=== PATIENT | female | born 2000 | race Caucasian/White ===

== ENCOUNTER 2021-01-11 13:37 | Emergency (ER) | payer BC, OTHER ==
[~2021-01-11] VITALS: Ht 177.8 cm; Wt 70.4 kg
[2021-01-11 14:12] LABS: HEMATOCRIT 40 % (35-52); HEMOGLOBIN 13.5 g/dL (11.5-16.0); MEAN CORPUSCULAR HEMOGLOBIN 28 pg (25-34); MEAN CORPUSCULAR HGB CONC 34 g/dL (32-36); MEAN CORPUSCULAR VOLUME 85 fL (80-99); MEAN PLATELET VOLUME 10.6 fL (9.0-12.2); PLATELET COUNT 230 10^3/uL (130-400)
[2021-01-11 14:13] LABS: BASOPHILS # (AUTO) 0.1 10^3/uL (0.0-0.1); BASOPHILS % (AUTO) 1 % (0-10); EOSINOPHILS # (AUTO) 0.1 10^3/uL (0.0-0.3); EOSINOPHILS % (AUTO) 1 % (0-10); LYMPHOCYTES % (AUTO) 23 % (12-44); MONOCYTES # (AUTO) 0.6 X 10^3 (0.0-1.0); MONOCYTES % (AUTO) 7 % (0-12); NEUTROPHILS # (AUTO) 5.8 X 10^3 (1.8-7.8); NEUTROPHILS % (AUTO) 68 % (42-75)
[2021-01-11 14:14] LABS: WHITE BLOOD COUNT 8.5 10^3/uL (4.3-11.0)
--- NOTE | 2021-01-11 14:14 | Diagnostic Imaging Report ---
INDICATION: Centralized chest pain. TIME OF EXAM: 02:04 p.m. COMPARISON: No prior studies are available for comparison. The heart size is normal. The pulmonary vascularity is unremarkable. The lungs are clear. No infiltrate, effusion or pneumothorax is detected. IMPRESSION: No acute cardiopulmonary process is detected. Dictated by: Dictated on workstation # [id number]
[2021-01-11 14:24] LABS: BUN/CREATININE RATIO 21; CALCIUM 9.6 MG/DL (8.5-10.1); CARBON DIOXIDE 24 MMOL/L (21-32); CHLORIDE 104 MMOL/L (98-107); CREATININE SERUM 0.85 MG/DL (0.60-1.30); GFR ESTIMATED 86; GLUCOSE 101 MG/DL (70-105); POTASSIUM 3.6 MMOL/L (3.6-5.0); SODIUM 140 MMOL/L (135-145)
[2021-01-11 14:25] LABS: ALANINE AMINOTRANSFERASE 13 U/L (0-55); ALBUMIN 4.7 GM/DL (3.2-4.5); ALKALINE PHOSPHATASE 53 U/L (40-136); BILIRUBIN,TOTAL 0.4 MG/DL (0.1-1.0); TOTAL PROTEIN 7.4 GM/DL (6.4-8.2)
--- NOTE | 2021-01-11 16:04 | ED Chest Pain ---
General Chief Complaint: Chest Pain Stated Complaint: CHEST PAIN Nursing Triage Note: Patient presents to the ED with c/o chest pain. She reports that she has a hx of a high heart rate and has seen a limnology teacher in the past. She reports over the last several days her heart rate has been in the 150s to 170s and today she started having left sided chest pain. She describes the pain as a deep ache. Source: patient History of Present Illness Date Seen by Provider: Jan 11, 2021 Time Seen by Provider: 14:00 Initial Comments Patient is a 20-year-old female with history of cardiac arrhythmia who presents with left-sided chest pain earlier this morning. Chest pain is since resolved. Patient reports feeling anxious with heart rate 1 150s to 170s. The patient has previously been told that if she has a heart rate close to 200 she must check in to the emergency department. Patient denies shortness of breath, cough, fever chills, nausea vomiting or sweats. Denies shoulder pain jaw pain, back pain. No history of valvular heart disease, Marfan syndrome, DVT or PE. Patient is not on anticoagulation therapy. No other acute symptoms or complaints. Timing/Duration: 4-6 hours Severity/Quality: mild Location: other Radiation: other Activities at Onset: other Prior CP/Workup: other Modifying Factors: improves with other Allergies and Home Medications Allergies Coded Allergies: No Known Drug Allergies (Unverified , 01/11/21) Patient Home Medication List Home Medication List Reviewed: Yes Review of Systems Review of Systems Constitutional: see HPI EENTM: See HPI Respiratory: See HPI Cardiovascular: See HPI Gastrointestinal: See HPI Genitourinary: See HPI Musculoskeletal: see HPI Skin: see HPI Psychiatric/Neurological: See HPI Endocrine: See HPI Hematologic/Lymphatic: See HPI All Other Systems Reviewed Negative Unless Noted: Yes Past Ieqnldp-Zgnmbg-Zdkdgq Hx Patient Social History Tobacco Use?: No Use of E-Cig and/or Vaping dev: No Substance use?: No Alcohol Use?: No Pt feels they are or have been: No Immunizations Up To Date First/Initial COVID19 Vaccinat: Not Currently Vaccinated Past Medical History Surgery/Hospitalization HX: Hx high heart rate Physical Exam Vital Signs Vital Signs - First Documented 01/11/21 13:37 Pulse 128 Resp 21 B/P (MAP) 107/72 (84) Pulse Ox 100 O2 Delivery Room Air Capillary Refill : Less Than 3 Seconds Height, Weight, BMI Height: '" Weight: lbs. oz. kg; 22.00 BMI Method: General Appearance: No Apparent Distress, WD/WN, Anxious HEENT: PERRL/EOMI Neck: Non Tender, Supple Respiratory: Chest Non Tender, Lungs Clear Cardiovascular: Regular Rate, Rhythm, No Edema Extremity: Non Tender Neurologic/Psychiatric: Alert, Oriented x3, No Motor/Sensory Deficits Focused Exam Sepsis Stage: Ruled Out Progress/Results/Core Measures Results/Orders Lab Results Laboratory Tests Test 01/11/21 13:44 Range/Units White Blood Count 8.5 4.3-11.0 10^3/uL Red Blood Count 4.75 3.80-5.11 10^6/uL Hemoglobin 13.5 11.5-16.0 g/dL Hematocrit 40 35-52 % Mean Corpuscular Volume 85 80-99 fL Mean Corpuscular Hemoglobin 28 25-34 pg Mean Corpuscular Hemoglobin Concent 34 32-36 g/dL Red Cell Distribution Width 12.2 10.0-14.5 % Platelet Count 230 130-400 10^3/uL Mean Platelet Volume 10.6 9.0-12.2 fL Immature Granulocyte % (Auto) 0 % Neutrophils (%) (Auto) 68 42-75 % Lymphocytes (%) (Auto) 23 12-44 % Monocytes (%) (Auto) 7 0-12 % Eosinophils (%) (Auto) 1 0-10 % Basophils (%) (Auto) 1 0-10 % Neutrophils # (Auto) 5.8 1.8-7.8 X 10^3 Lymphocytes # (Auto) 2.0 1.0-4.0 X 10^3 Monocytes # (Auto) 0.6 0.0-1.0 X 10^3 Eosinophils # (Auto) 0.1 0.0-0.3 10^3/uL Basophils # (Auto) 0.1 0.0-0.1 10^3/uL Immature Granulocyte # (Auto) 0.0 0.0-0.1 10^3/uL D-Dimer 0.21 0.00-0.49 UG/ML Sodium Level 140 135-145 MMOL/L Potassium Level 3.6 3.6-5.0 MMOL/L Chloride Level 104 98-107 MMOL/L Carbon Dioxide Level 24 21-32 MMOL/L Anion Gap 12 5-14 MMOL/L Blood Urea Nitrogen 18 7-18 MG/DL Creatinine 0.85 0.60-1.30 MG/DL Estimat Glomerular Filtration Rate 86 BUN/Creatinine Ratio 21 Glucose Level 101 70-105 MG/DL Calcium Level 9.6 8.5-10.1 MG/DL Corrected Calcium 8.5-10.1 MG/DL Total Bilirubin 0.4 0.1-1.0 MG/DL Aspartate Amino Transf (AST/SGOT) 12 5-34 U/L Alanine Aminotransferase (ALT/SGPT) 13 0-55 U/L Alkaline Phosphatase 53 40-136 U/L Total Protein 7.4 6.4-8.2 GM/DL Albumin 4.7 H 3.2-4.5 GM/DL My Orders Orders - ASTER GIRON DO Cbc With Automated Diff (01/11/21 13:58) Comprehensive Metabolic Panel (01/11/21 13:58) Fibrin Degradation Products (01/11/21 13:58) Chest 1 View Ap/Pa Only (01/11/21 13:58) Ekg Tracing (01/11/21 13:38) Vital Signs/I&O 01/11/21 13:37 Pulse 128 Resp 21 B/P (MAP) 107/72 (84) Pulse Ox 100 O2 Delivery Room Air Blood Pressure Mean: 84 Departure Communication (Admissions) EKG: Sinus rhythm, no acute ST-T wave changes Chest x-ray: No acute cardiopulmonary disease. Patient's chest pain and tachycardia resolved in the ED. Symptoms do not reproduce. Lab work, EKG chest x-ray reviewed and is reassuring. Recommendations are watchful waiting follow-up with PCP and/or limnology teacher if symptoms continue. Return precautions reviewed. Patient verbalizes understanding agreement discharge instructions prior to departure. Impression Primary Impression: Chest wall pain Additional Impression: Tachyarrhythmia Disposition: 01 HOME, SELF-CARE Condition: Improved Departure-Patient Inst. Decision time for Depature: 16:04 Patient Instructions: Tachycardia, Chest Pain, Adult ED Add. Discharge Instructions: You were evaluated in the emergency department for chest pain. EKG lab and i maging studies were performed and are reassuring. The exact cause of your chest pain has not been determined. Please take ibuprofen as needed for pain and follow-up with your PCP and/or limnology teacher if symptoms persist. Return to the ED if new or worsening symptoms. All discharge instructions reviewed with patient and/or family. Voiced understanding. ASTER GIRON DO Jan 11, 2021 16:04
[2021-01-11 16:07] VITALS: BP 107/68
== END 2021-01-11 16:07 | disposition home or self-care (01) ==
LOC: ER FS 13:40 → EDBD 13:40 → ER FS 16:07
DX: R07.89 Other chest pain (principal); R00.0 Tachycardia, unspecified
CPT/HCPCS: 36415; 71045; 80053; 85025; 85379; 93005